=== PATIENT | female | born 1955 | race Caucasian/White ===

== ENCOUNTER 2017-10-15 18:20 | Emergency (ER) | payer OTHER ==
[~2017-10-15] VITALS: Ht 157.5 cm; Wt 65.8 kg
[~2017-10-15 18:20] MED LIST: ABILIFY 2 MG2 M1 PO; AMITRIPTYLINE H25 M2 PO; AMPICILLIN-SULB3 GM IV; AUGMENTIN 875-1 EACH PO; CARISOPRODOL 3350 MG PO; CEFAZOLIN IV; CELEXA40 MG PO; CLONIDINE0.1; DICLOXACILLIN500 MG PO; HYCET 7.5 MG-3473 ML PO; HYDROCODONE-APA1 TA1 PO; IBUPROFEN 600600 M1 PO; IBUPROFEN IB200 MG PO; INDOMETHACIN 5050 M1 PO; LEVAQUIN 500 M500 MG PO; LISINOPRIL20 MG PO; LISINOPRIL40 MG; MOBIC15 MG PO; NORCO 5-325 TA1 EACH PO; PERCOCET 5-3251 EACH PO; PREDNISONE 10 M10 M1; PREDNISONE 20 M20 MG PO; TRAMADOL 50 MG50 MG PO; VALIUM10 MG PO; VALIUM2 MG PO; VALIUM5 MG PO; ZPAK PO
[2017-10-15] MEDS ORDERED: MAXIPIME2 GM IV PUSH (18:39)
[2017-10-15] MEDS ORDERED: VANCOMYCIN HCL10 GM IV (18:40)
[2017-10-15] MEDS ORDERED: DIVALPROEX SOD500 M1 PO (18:43)
[2017-10-15] MEDS ORDERED: OXYCONTIN10 M1 PO (18:44)
[2017-10-15 18:48] LABS: ABSOLUTE NEUTROPHILS 3.5 thou/uL (1.4-8.2); BASOPHILS 0.5 % (0.0-2.0); EOSINOPHILS 9.4 % (0.0-3.0); HEMATOCRIT 30.9 % (37.0-47.0); HEMOGLOBIN 10.1 gm/dL (12.0-15.0); MCH 26.1 pg (26.0-34.0); MCHC 32.7 g/dL (28.0-37.0); MCV 79.7 fL (80.0-100.0); PLATELET COUNT 278 thou/uL (150-400); POLYS 50.1 % (36.0-66.0); RBC 3.87 mil/uL (4.20-5.00); RDW 16.9 % (10.5-14.5); WBC 6.9 thou/uL (4.0-11.0)
[2017-10-15 18:56] LABS: CALCIUM 8.5 mg/dL (8.5-10.1); CREATININE 0.7 mg/dL (0.6-1.0)
[2017-10-15 19:02] LABS: ALBUMIN 3.2 g/dL (3.4-5.0); DIRECT BILIRUBIN 0.1 mg/dL (<0.1-0.3); POTASSIUM 2.8 mmol/L (3.5-5.1); TOTAL BILIRUBIN 0.3 mg/dL (<0.1-1.0); TOTAL PROTEIN 6.4 g/dL (6.4-8.2)
[2017-10-15] MEDS ORDERED: KLOR-CON 1010 MEQ PO (19:34)
== END 2017-10-15 19:50 | disposition short-term general hospital (02) ==
LOC: ER 18:20
PROVIDERS: Emergency Medicine
DX: R20.2 Paresthesia of skin (principal); E87.6 Hypokalemia; I10 Essential (primary) hypertension; M19.90 Unspecified osteoarthritis, unspecified site

== ENCOUNTER 2020-04-19 05:47 | Inpatient (IN) | payer OTHER ==
[~2020-04-19] VITALS: Ht 157.5 cm; Wt 58.7 kg
[2020-04-19] VITALS (8 sets, daily range): BP systolic 86–152; BP diastolic 53–88
[~2020-04-19 05:47] MED LIST changes: +DIVALPROEX SOD500 M1 PO; +KLOR-CON 1010 MEQ PO; +MAXIPIME2 GM IV PUSH; +OXYCONTIN10 M1 PO; +VANCOMYCIN HCL10 GM IV
[2020-04-19 06:23] LABS: ABSOLUTE NEUTROPHILS 13.3 thou/uL (1.4-8.2); BASOPHILS 0.6 % (0.0-2.0); EOSINOPHILS 0.8 % (0.0-3.0); HEMATOCRIT 24.1 % (37.0-47.0); HEMOGLOBIN 7.5 gm/dL (12.0-15.0); LYMPHOCYTES 16.2 % (24.0-44.0); MCHC 31.1 g/dL (28.0-37.0); MCV 80.4 fL (80.0-100.0); MONOCYTES 7.5 % (1.0-8.0); PLATELET COUNT 345 thou/uL (150-400); POLYS 74.9 % (36.0-66.0); RBC 2.99 mil/uL (4.20-5.00); RDW 14.4 % (10.5-14.5); WBC 17.7 thou/uL (4.0-11.0)
[2020-04-19 06:38] LABS: CALCIUM 8.3 mg/dL (8.5-10.1); CREATININE 0.9 mg/dL (0.6-1.0)
[2020-04-19 06:40] LABS: APTT 17.2 Seconds (24.5-32.8); PROTIME 10.6 Seconds (9.3-11.4)
[2020-04-19 06:44] LABS: TOTAL BILIRUBIN 0.3 mg/dL (0.2-1.0)
[2020-04-19 07:10] LABS: URINE BILIRUBIN NEGATIVE (Negative); URINE BLOOD NEGATIVE (Negative); URINE CLARITY CLEAR; URINE COLOR YELLOW; URINE GLUCOSE-RANDOM* NEGATIVE (Negative); URINE KETONES NEGATIVE (Negative); URINE LEUKOCYTES-REFLEX NEGATIVE (Negative); URINE NITRITE-REFLEX NEGATIVE (Negative); URINE PROTEIN (DIPSTICK) NEGATIVE (Negative); URINE UROBILINOGEN 0.2 E.U./dl (0.2-1.0)
--- NOTE | 2020-04-19 08:10 | NUR ---
RETURNED FROM CT
--- NOTE | 2020-04-19 10:30 | NUR ---
TRANSFERRED TO GI LAB WITH GI NURSE
[2020-04-19 12:55] LABS: HEMATOCRIT 31.5 % (37.0-47.0); HEMOGLOBIN 10.2 gm/dL (12.0-15.0)
--- NOTE | 2020-04-19 16:50 | NUR ---
PT TO THE UNIT POST EGD. PT ORIENTED TO ROOM AND BEDSPACE. MEDS PER MAR - ASSESSMENT CHARTED - GIVEN MS FOR PAIN ABDO AND HEADACHE WITH GOOD RELIEF. MAYITO CLEAR LIQUID DIET. NO CO'S OF NAUSEA. NO CO'S AT THE PRESENT TIME.
[2020-04-20] VITALS (8 sets, daily range): BP systolic 101–185; BP diastolic 52–103
[2020-04-20 02:31] LABS: HEMATOCRIT 30.5 % (37.0-47.0); HEMOGLOBIN 9.9 gm/dL (12.0-15.0); MCH 27.4 pg (26.0-34.0); MCHC 32.4 g/dL (28.0-37.0); MCV 84.8 fL (80.0-100.0); RBC 3.59 mil/uL (4.20-5.00); RDW 16.9 % (10.5-14.5); WBC 13.8 thou/uL (4.0-11.0)
[2020-04-20 02:49] LABS: ALBUMIN 2.9 g/dL (3.4-5.0); CALCIUM 8.2 mg/dL (8.5-10.1); CREATININE 0.6 mg/dL (0.6-1.0); POTASSIUM 3.7 mmol/L (3.5-5.1); TOTAL BILIRUBIN 0.4 mg/dL (0.2-1.0); TOTAL PROTEIN 5.7 g/dL (6.4-8.2)
--- NOTE | 2020-04-20 11:21 | NUR ---
PT WITH CON'T LUQUE THRU THE NOC AND AM, PHYSCICIAN ROUNDING THIS AM AND REORDERED HOME MEDS, VSS, PRN BP MED GIVEN X1 AT 0400 BP BACK DOWN TO 131/69, PRN PAIN MEDS GIVEN THRU THE NOC WITH LITTLE RELIEF, PT DID STATE SHE WAS ABLE TO SLEEP ON AND OFF, HOME MEDS RESTARTED AND PAIN AND ANXIETY MEDS GIVEN THIS AM, FAMILY AT BEDSIDE OFFERING SUPPORT, REPORT GIVEN TO NEXT SHIFT TO CON'T WITH PPOC.
--- NOTE | 2020-04-20 14:29 | HC ---
[facility] [place] [address] CONSULTATION Name: DANETTE TALBERT Room #: 206-P ADM IN .R.#: [id number] Admission: 04/19/20 Attend Phys: Parish Ramirez MD Discharge: Date of : 59 Report #: [id number] THIS REPORT FOR: cc: FAM - Family physician unknown FAM - Family physician unknown Jareth Millan MD ~ DATE OF SERVICE: 04/19/2020 HISTORY OF PRESENT ILLNESS: The patient is a 64-year-old female who reports approximately 4-day history of melanotic type stools. No previous history of GI bleed. She does report intermittent nausea and abdominal pain. She has been taking ibuprofen several times per day for a long period of time for chronic arthritic pain. No previous history of upper endoscopy. Reportedly had a colonoscopy 2 years ago that was negative. She denies any dysphagia. She denies any hematemesis. No significant history of heartburn. She does not take any antacids on a regular basis. She denies any obvious bright red blood per rectum. Again, has been having more melanotic type stools. Her weight has been fairly stable. She denies any fevers or chills. No cough, shortness of breath. She has been feeling weak in general. Her admit hemoglobin 7.5. The patient was transfused 2 units of packed cells this morning. She also has an elevated BUN of 48. Lactic acid level of 4.8. She underwent a CT scan of the abdomen and pelvis, which shows hiatal hernia. Colon was evacuated and contains only a small amount of stool. This may reflect recent gastroenteritis. There is moderate diverticulosis noted in the sigmoid colon. PAST MEDICAL HISTORY: Degenerative disk disease, hypertension, arthritis, previous history of pneumothorax, previous right rotator cuff repair. ALLERGIES: No known drug allergies. MEDICATIONS ON ADMISSION: Maxipime, vancomycin were started in the ER, Motrin, oxycodone, Elavil, lisinopril, Valium, Soma. REVIEW OF SYSTEMS: As per HPI. SOCIAL HISTORY: She denies any tobacco or alcohol use. FAMILY HISTORY: Negative for colon cancer or inflammatory bowel disease. PHYSICAL EXAMINATION: VITAL SIGNS: Temperature is 37.0, pulse in the 120s, respiratory rate 20, blood pressure 137/74. GENERAL: She is alert and oriented x 3, in no acute distress. HEENT: Sclerae nonicteric. Oropharynx is clear. NECK: Supple, without lymphadenopathy. [facility] [address] [place] [address] CONSULTATION Name: DANETTE TALBERT Room #: 206-P ADM IN [facility]#: [id number] Admission: 04/19/20 Attend Phys: Parish Ramirez MD Discharge: Date of : 59 Report #: [id number] CARDIOVASCULAR: Regular rhythm, tachycardic. CHEST: Clear to auscultation anteriorly bilaterally. ABDOMEN: Soft. She is mildly tender to palpation in the midepigastrium, nondistended, normoactive bowel sounds. EXTREMITIES: No cyanosis, clubbing or edema. LABORATORY DATA: WBC 17.7, hemoglobin 7.5, platelet count is 345. INR 1.0. Sodium 139, potassium 4.0, chloride 102, bicarbonate 21, BUN 48, creatinine 0.9, glucose 190. Lactic acid level 4.5, repeat 4.8. Calcium 8.3, total bilirubin is 0.3, AST 13, ALT 19, alkaline phosphatase 65, total protein 6.0, albumin 3.0. Stool studies pending at this time. COVID PCR pending. Original COVID is negative. ASSESSMENT AND PLAN: 1. Gastrointestinal bleed, suspect upper source. The patient with melanotic stools, elevated BUN, history of significant NSAID use. Would recommend proceeding with an upper endoscopy today for further evaluation. I explained to the patient if her EGD is negative, we will proceed with flexible sigmoidoscopy as well. 2. CT of the abdomen was essentially negative, although possible gastroenteritis with evacuation of stool. She does have an elevated lactic acid level. She is afebrile at this time. She was given antibiotics originally on admission. We will continue to monitor closely. Thank you for allowing me to participate in her care. <ELECTRONICALLY SIGNED> By: Jareth Millan MD 04/20/20 1429 1122 0630 Jareth Millan MD /nt
--- NOTE | 2020-04-20 14:29 | P ---
[facility] [place] [address] [place] [address] PROCEDURE REPORT Name: DANETTE TALBERT Room #: 206-P ADM IN M.R.#: [id number] Admission: 04/19/20 Attend Phys: Parish Ramirez MD Discharge: Date of : 59 Report #: [id number] THIS REPORT FOR: cc: FAM - Family physician unknown FAM - Family physician unknown Jareth Millan MD ~ DATE OF SERVICE: 04/19/2020 PROCEDURE PERFORMED: Upper endoscopy with bleeding control. HISTORY OF PRESENT ILLNESS: The patient is a 64-year-old female with a history of approximately 4 days of melanotic type stools. She uses NSAIDs on a regular basis for chronic arthritic pain. Denies any nausea, vomiting, or hematemesis. Does report midepigastric abdominal pain. No previous history of upper endoscopy. Last colonoscopy [address] showing evacuation of stool in the colon suggesting possible gastroenteritis. Stool studies have been ordered. Her white count is elevated. She did receive IV antibiotics through the ER initially. She is currently on a Protonix drip. Plan is for upper endoscopy. DESCRIPTION OF PROCEDURE: The risks and benefits of the procedure were explained to the patient, those risks including but not limited to bleeding, perforation and the risk of sedation. She understood these risks and gave informed consent. Sedation was given using propofol per anesthesia. Next, using a standard Olympus upper endoscope, the scope was placed in the patient's mouth and advanced under direct vision through the esophagus, stomach and into the second portion of the duodenum. The esophagus was normal throughout. The GE junction was normal. In the stomach, a moderate to large size hiatal hernia was noted. Within the hernia was a 2 cm ulcer with visible vessel, no active bleeding. Multiple small superficial ulcers, clean white base were noted within the hiatal hernia as well. The gastric antrum was normal. The pylorus was normal and patent. The duodenal bulb, first and second portion were all normal. There was no evidence of blood in her stomach or in her duodenum today. Because she has a visible vessel, I proceeded with injecting the area with 2 mL of epinephrine and then proceeded with 7-[place] bipolar cautery. Initially, there was only a small amount of bleeding with cautery as I proceeded, no further bleeding was noted. Visible vessel was fully cauterized. I did not feel an endoclip would be helpful due to the size of the ulcer. At this point, the scope was withdrawn and the procedure terminated. The patient tolerated the procedure well. IMPRESSION: 1. Large gastric ulcer within the hiatal hernia with visible vessel, likely source of recent gastrointestinal bleed. No active bleeding at this time. This was treated with epinephrine and cautery. 2. Multiple smaller ulcers within the hiatal hernia. No active bleeding. [facility] [address] [place] [address] PROCEDURE REPORT Name: DANETTE TALBERT Room #: 206-P [facility] IN M.R.#: [id number] Admission: 04/19/20 Attend Phys: Parish Ramirez MD Discharge: Date of : 59 Report #: [id number] 3. Medium to large size hiatal hernia. RECOMMENDATIONS: 1. Continue PPI drip. 2. Continue to monitor hemoglobin closely. 3. We will add Carafate at this time. 4. Start clear liquids today as tolerated and advance if no further signs of bleeding. 5. The patient with elevated lactic acid level, CT showing no significant change. She does have an elevated white count. The patient was given 1 dose of antibiotics initially. Stool studies are pending at this time. We will continue to monitor. Thank you for allowing me to participate in her care. <ELECTRONICALLY SIGNED> By: Jareth Millan MD 04/20/20 1429 1126 0611 Jareth Millan MD /nt
--- NOTE | 2020-04-20 17:15 | NUR ---
ASSESSMENT CHARTED - MEDS PER JUL - GIVEN OXY ER FOR CO'S OF HEADACHE WITH GOOD RELIEF - PATIENT APPEARS TO HAVE BEEN SLEEPING / RESTING PAOST MEICATION - SHE DID STATE THAT HER HEAD FELT BETTER. ADVANCED TO REG DIET APPEARS TO BE TOLERATING WITH NO CO'S OF ABDO PAIN OR NAUSEA. PROTONIX DRIP CONTINUES ORDERED. PATIENT HAS BEEN RESTING IN BED TODAY. JONES REMAINS INSITU. NO CO'S AT THE PRESENT TIME.
[2020-04-21 04:22] VITALS: BP 118/64
--- NOTE | 2020-04-21 05:15 | NUR ---
ASSUMED CARE AT 1900; AOX4/DROWSY; C/O OF ABD PAIN MANAGED WITH IV MEDICATIONS; SR ON THE MONITOR/ HR 80s-90s; BL HANDS EDEMA WITH IV SITES IN PLACE; JONES IN PLACE WITH GOOD URINE OUTPUT; PLAN IS FOR PATIENT TO D/C TO HOME TODAY OR TOMORROW; WILL CONTINUE TO MONITOR.
[2020-04-21 08:00] VITALS: BP 107/57
[2020-04-21 09:50] LABS: HEMATOCRIT 26.8 % (37.0-47.0); HEMOGLOBIN 8.8 gm/dL (12.0-15.0)
[2020-04-21 12:58] VITALS: BP 124/69
[2020-04-21 16:00] VITALS: BP 92/61
[2020-04-21 17:15] VITALS: BP 92/61
[2020-04-21 19:18] VITALS: BP 127/72
--- NOTE | 2020-04-21 19:36 | NUR ---
progressing towards plan of care. protonix gtt continues. tolerating meals. normal saline 100ml/hr.
--- NOTE | 2020-04-22 04:09 | NUR ---
ASSUMED CARE OF PATIENT AT 1900; AOX4 BUT DROWSY/SLEPT MOST OF NOC; C/O OF PAIN MANAGED WITH MEDICATION; SR/BBB/PACs ON THE MONITOR WITH HR 70-90s; D/C JONES IN EARLY AM WITH POST-CATH NOT YET VISUALIZED; PLAN IS FOR PATIENT TO D/C TO HOME TODAY; WILL CONTINUE TO MONITOR.
[2020-04-22 04:50] VITALS: BP 159/60
[2020-04-22 05:03] LABS: HEMATOCRIT 26.2 % (37.0-47.0); HEMOGLOBIN 8.7 gm/dL (12.0-15.0)
[2020-04-22 08:00] VITALS: BP 143/83
[2020-04-22] MEDS ORDERED: CARAFATE 1 GM TA1 G1 PO (12:05)
[2020-04-22] MEDS ORDERED: ACETAMINOPHEN325 M1 PO (12:05)
[2020-04-22] MEDS ORDERED: PROTONIX 20 MG20 M1 PO (12:05)
[2020-04-22] MEDS ORDERED: CIPRO500 M1 PO (12:05)
[2020-04-22] MEDS ORDERED: METRONIDAZOLE500 M4 PO (12:05)
[2020-04-22 12:37] VITALS: BP 143/83
[2020-04-22 13:21] VITALS: BP 143/83
--- NOTE | 2020-04-22 14:36 | NUR ---
PT AND PT SON WERE PRESENT FOR DISCHARGE EDUCATION. PT WAS EDUCATED ON FOLLOW-UP APPT WITH GI AND HER OWN PRIMARY CARE PROVIDER. PT AND SON MADE AWARE OF S/S OF CONTINUED GI ISSUES AND TO CALL THE DOCTOR. PT WAS EDUCATED ON 5 NEW RX, AND PROVIDED THE PRESCRIPTIONS. PT IS DISCHARGED TO HOME WITH SON.
--- NOTE | 2020-04-24 11:24 | EKG ---
[facility] [address] [place] [address] ELECTROCARDIOGRAM REPORT Name: TALBERTDANETTE Room #: 206-P DIS IN M.R.#: [id number] Admission: 04/19/20 Attend Phys: Parish Ramirez MD Discharge: 04/22/20 Date of : 59 Report #: [id number] <ELECTRONICALLY SIGNED> By: Dominick Oliveira MD, FACC 04/21/20 0719 2 Dominick Oliveira MD, FACC /EPI
== END 2020-04-22 14:40 | disposition home or self-care (01) | DRG 377 ==
LOC: ER 05:47 → EROBS 07:58 → 2N 11:09
PROVIDERS: Emergency Medicine; ADMIT Hospitalist; ATTEND Hospitalist
PROC: 0D568ZZ Destruction of Stomach, Via Natural or Artificial Opening Endoscopic (ICD-10-PCS; principal; 2020-04-19)
PROC: 30233N1 Transfusion of Nonautologous Red Blood Cells into Peripheral Vein, Percutaneous Approach (ICD-10-PCS; principal; 2020-04-19)
PROC: 3E0G8GC Introduction of Other Therapeutic Substance into Upper GI, Via Natural or Artificial Opening Endoscopic (ICD-10-PCS; 2020-04-19)
DX: K25.4 Chronic or unspecified gastric ulcer with hemorrhage (principal); R57.8 Other shock; D62 Acute posthemorrhagic anemia; E87.2 Acidosis; I10 Essential (primary) hypertension; M19.90 Unspecified osteoarthritis, unspecified site; I95.9 Hypotension, unspecified; K44.9 Diaphragmatic hernia without obstruction or gangrene; K52.9 Noninfective gastroenteritis and colitis, unspecified; K31.9 Disease of stomach and duodenum, unspecified; Z79.1 Long term (current) use of non-steroidal anti-inflammatories (NSAID); Z79.899 Other long term (current) drug therapy; Z20.828 Contact with and (suspected) exposure to other viral communicable diseases
CPT/HCPCS: 10081; 62110; 62900